=== PATIENT | male | born 1975 | race Caucasian/White ===

== ENCOUNTER 2019-06-22 08:25 | Emergency (ER) | payer MEDICAID ==
[~2019-06-22] VITALS: Ht 175.3 cm; Wt 92.0 kg
[2019-06-22] MEDS ORDERED: IBUPROFEN 600MG TABLET PO ONE (10:30)
[2019-06-22] MEDS ORDERED: KETOROLAC 30MG/ML VIAL IM ONE (10:45)
[2019-06-22 10:51] VITALS: BP 142/7
== END 2019-06-22 10:54 | disposition home or self-care (01) ==
LOC: ER 08:55
DX: S46.911A Strain of unspecified muscle, fascia and tendon at shoulder and upper arm level, right arm, initial encounter (principal); M54.5 Low back pain; X58.XXXA Exposure to other specified factors, initial encounter; Y93.89 Activity, other specified; Y92.89 Other specified places as the place of occurrence of the external cause; Y99.8 Other external cause status
CPT/HCPCS: 96372; 99283; J1885

== ENCOUNTER 2019-11-05 11:11 | Emergency (ER) | payer MEDICAID ==
[~2019-11-05] VITALS: Ht 172.7 cm; Wt 75.0 kg
[2019-11-05] MEDS ORDERED: ACETAMINOPHEN 325MG TABLET PO ONE (12:30)
[2019-11-05] MEDS ORDERED: ALBUTEROL 6.7GM HFA INHALER ORI ONE (12:30)
[2019-11-05 13:50] VITALS: BP 120/72
== END 2019-11-05 13:53 | disposition home or self-care (01) ==
LOC: ER 11:11
DX: U07.1 COVID-19 (principal); J06.9 Acute upper respiratory infection, unspecified; R05 Cough
CPT/HCPCS: 71045; 94640; 99284; C9803; U0003; Z7610

== ENCOUNTER 2019-11-16 16:16 | Emergency (ER) | payer MEDICAID ==
[~2019-11-16] VITALS: Ht 175.3 cm; Wt 89.0 kg
[2019-11-16 16:38] VITALS: BP 147/94
== END 2019-11-16 18:59 | disposition left against medical advice (07) ==
LOC: ER 16:16
DX: R10.9 Unspecified abdominal pain (principal); Z53.21 Procedure and treatment not carried out due to patient leaving prior to being seen by health care provider

== ENCOUNTER 2021-05-09 15:04 | Emergency (ER) | payer MEDICAID ==
[~2021-05-09] VITALS: Ht 175.3 cm; Wt 93.0 kg
[2021-05-09] MEDS ORDERED: ACETAMINOPHEN 500MG TABLET PO ONE (15:15)
[2021-05-09] MEDS ORDERED: IBUPROFEN 800MG TABLET PO ONE (15:15)
[2021-05-09] MEDS ORDERED: CYCL10TA7 MT (17:30)
[2021-05-09] MEDS ORDERED: IBUP-2029 MT (17:30)
[2021-05-09 18:03] VITALS: BP 145/78
== END 2021-05-09 17:41 | disposition home or self-care (01) ==
LOC: ER 15:04
DX: S30.0XXA Contusion of lower back and pelvis, initial encounter (principal); S10.83XA Contusion of other specified part of neck, initial encounter; V49.49XA Driver injured in collision with other motor vehicles in traffic accident, initial encounter; Y93.89 Activity, other specified; Y92.488 Other paved roadways as the place of occurrence of the external cause
CPT/HCPCS: 72040; 72100; 99284